=== PATIENT | male | born 1995 | race Caucasian/White ===

== ENCOUNTER 2017-12-13 23:15 | Emergency (ER) | payer OTHER ==
[~2017-12-13] VITALS: Ht 182.9 cm; Wt 68.0 kg
--- NOTE | 2017-12-13 23:23 | NUR ---
Dr. Murray at bedside for MSE.
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
[2017-12-13] MEDS ORDERED: ACETAMINOPHEN 325 MG TABLET PO ONE (23:30)
[2017-12-13] MEDS ORDERED: IBUPROFEN 600 MG TABLET PO ONE (23:30)
[2017-12-13] MEDS ORDERED: ACETAMINOPHEN 325 MG TABLET ONE (23:36)
[2017-12-13] MEDS ORDERED: IBUPROFEN 600 MG TABLET ONE (23:37)
--- NOTE | 2017-12-13 23:50 | NUR ---
Xray at bedside.
--- NOTE | 2017-12-14 00:09 | NUR ---
Patient out of ER for CT.
--- NOTE | 2017-12-14 00:16 | NUR ---
Pt back to ER from CT.
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
--- NOTE | 2017-12-14 01:23 | NUR ---
Patient discharged to home in stable conditon. Written and verbal after care instructions given. Patient verbalizes understanding of instructions. Patient ambulated out of ER with steady gait, no acute signs of distress, VSS, all belongings taken.
[2017-12-14 01:26] VITALS: BP 120/65
== END 2017-12-14 01:27 | disposition home or self-care (01) ==
LOC: ER 23:18
DX: S06.0X0A Concussion without loss of consciousness, initial encounter (principal); S13.4XXA Sprain of ligaments of cervical spine, initial encounter; V47.5XXA Car driver injured in collision with fixed or stationary object in traffic accident, initial encounter; Y93.89 Activity, other specified; Y92.410 Unspecified street and highway as the place of occurrence of the external cause; Y99.8 Other external cause status
CPT/HCPCS: 70450; 73110; 99284; A4663